=== PATIENT | male | born 1980 | race Two or more races ===

== ENCOUNTER 2025-10-06 14:32 | Emergency (ER) | payer BC, SELFPAY ==
[2025-10-06 14:39] VITALS: BP 143/101; PULSE 86; RESP 18; TEMP 36.8; O2SAT 99; BMI 28.8
--- NOTE | 2025-10-06 15:07 | ED_ITS ---
Discharge Plan Disposition Patient Disposition: Home, Self-Care Prescriptions Prescriptions: New metronidazole 500 mg tablet 500 mg PO BID 7 Days Qty: 14 0RF sulfamethoxazole-trimethoprim [Bactrim DS] 800-160 mg tablet 1 tab PO BID 7 Days Qty: 14 0RF No Action tizanidine 4 mg tablet 4 mg PO HS PRN (Reason: muscle spasticity) Qty: 14 0RF diclofenac potassium 50 mg tablet 50 mg PO TID PRN (Reason: pain) Qty: 30 0RF Referrals Follow up/Referrals: Provider,MD Rachel [Primary Care Provider, Medical] - See instructions Harshal Monique MD [Staff Physician, General Surgery] - See instructions Activity Restrictions/Add. Instructions Additional Instructions/Restrictions: Given the fact that you have had recurrence infected pilonidal cyst I recommend that you follow-up with Dr. Taylor our general surgeon to be evaluated for possible sinus surgery to eliminate the future possibility of recurrence. Take your antibiotics to completion. Floss the surgical lube as we discussed you may cut this out if you are not having any bleeding or purulent drainage which should be 24 to 48 hours. Clinical Impressions Clinical Impression: Infected pilonidal cyst Instructions Patient Instructions: DI for Skin Abscess Print Language Print Language: Syrian Discharge ED Provider: Juan Antonio Fallon General Adult HPI General Chief complaint: Skin/Abscess/Foreign Body Stated complaint: cyst on buttocks Time Seen by Provider: 10/06/25 14:42 Mode of Arrival: Ambulatory Source of Information: Patient Description of Symptoms (Recalled from ER Triage Doc. by RN): Patient reports worsening cyst on his buttocks. History of Present Illness HPI narrative: 44-year-old gentleman who presents today with what he believes is a recurrent infected pilonidal cyst he had incision and drainage 4 years ago never had any type of surgical follow-up but has not had any recurrence. Has severe pain and pressure in the superior aspect of his buttock. Related Data Previous Rx's ?Medication ?Instructions ?Recorded diclofenac potassium 50 mg tablet 50 mg PO TID PRN jorge n #30 tabs 10/27/24 tizanidine 4 mg tablet 4 mg PO HS PRN muscle [facility] 10/27/24 #14 tabs metronidazole 500 mg tablet 500 mg PO BID 7 days #14 t abs 10/06/25 sulfamethoxazole 800 1 tab PO BID 7 days #14 tabs 10/06/25 mg-trimethoprim 160 mg tablet (Bactrim DS) Allergies Allergy/AdvReac Type Severity Reaction Status Date / Time Penicillins Allergy Mild Verified 10/27/24 11:50 [facility] Disclaimer: The information contained in this section may have been updated after the patient was seen, as this information can be updated by other users. Social History (Updated 11/03/24 @ 11:01 by KARLIE Robins) Smoking Status: Never smoker alcohol intake: never current occupational status: employed Travel in the last 8 weeks?: Inside the [place] Have you lived/traveled outside [place] in past 30 days?: No Contact w/someone who lives/traveled outside [place] past 30 days?: No Exposure to someone with infectious disease in past 14 days?: No Do you have a fever (greater than 100.4 F or 38 C)?: No Have you tested positive for COVID-19?: No Exposed to someone with COVID-19 in past 14 days?: No Do you have a sore throat?: No Do you have a cough?: No Do you have any weakness?: No Do you have any diarrhea?: No Are you experiencing any unusual bleeding?: No Do you have any muscle aches/pain?: No Do you have any abdominal pain?: No Are you experiencing loss of taste or smell?: No Other Medical History Have you received the Pneumonia Vaccine: No ROS Obtained: Yes All systems reviewed & no additional complaints except as documented Physical Exam General General appearance: alert and in no apparent distress Respiratory Respiratory exam: Present normal lung sounds bilaterally Cardiovascular Cardiovascular exam: Present regular rate and normal rhythm Back Exam Back 1 view image: 2 1. Large erythematous and fluctuant abnormality of the superior aspect the patient's buttock consistent with a infected pilonidal cyst Neurological Exam Neurological exam: Present alert and oriented X3 Medical Decision Making Medical Records Screening: Per USPSTF and CDC recommendations, given the prevalence of disease in our region, it is our hospital?s policy to screen for HIV and viral Hepatitis for all patients aged 18 and over and those with ongoing risk factors. Dao Inquiry Pt receiving controlled substance: No Vital Signs: 10/06/25 14:39 Temperature 98.2 F Temperature Source Oral Pulse Rate [Radial] 86 Respiratory Rate 18 Blood Pressure [Right Arm] 143/101 H Blood Pressure Mean [Right Arm] 115 Blood Pressure Source [Right Arm] Automatic Cuff Blood Pressure Position [Right Arm] Sitting 02 Sat by Pulse Oximetry 99 Oxygen Delivery Method Room Air Orders (Tests/Meds): ORDERS Category Date Time Status POCUS Point of Care (ER Only) Stat Exams 10/06/25 14:40 Ordered HIV Combo Stat Lab 10/06/25 14:46 Ordered Hepatitis C Ab Qual. W/ RFX Stat Lab 10/06/25 14:46 Ordered Medical Decision Narrative: Patient with above history and physical bedside ultrasound confirmed a large localized fluid collection incision and drainage was performed which yielded a very large amount of purulent debris patient had significant improvement with pressure and pain given the fact that there is possible concern for MRSA Bactrim and Flagyl have been prescribed for the patient. A vessel loop was placed to prevent recurrence and the patient's been advised to floss this and to remove it once he no longer has any purulent or bloody discharge and to follow-up with surgery for possibility of having his cystic tracts removed. Procedures Abscess I/D Site: other (Pilonidal) Local Anesthetic: lidocaine 1% and with epi Amount of anesthesia used (mL): 10 Technique: incised with #11 blade Amount of fluid expressed (mL): 10 Irrigation: No Packing used?: plain (Vessel loop) Miscellaneous Procedure Procedure Performed: Limited soft tissue ultrasound Indication: Abscess Identified structures: Location: Superior aspect of the buttock Findings: Large dense fluid collection that is localized consistent with infected pilonidal cyst and abscess Impression: As above Images were to permanent archive The study was technically adequate Soft Tissue CPT Codes: CPT Neck: 27166-99 CPT Upper extremity: 93447-77 CPT Axilla: 71001-79 CPT Chest wall: 77669-45 CPT Breast: 85664-63-GQ/LT (complete), 11739-49-TZ/LT (limited), CPT Upper Back: 84355-57 CPT Lower Back: 60741-37 CPT Abdominal Wall: 76815-97 CPT Pelvic Wall: 89091-96 CPT Lower Extremity: 65019-66 CPT Other Soft Tissue: 88405-82 This study was performed by me, and I personally interpreted all images/videos. Based on my clinical judgement, these images were added and did not necessitate further imaging. Critical Care Critical Care Time Critical Care Time: No
[2025-10-06 15:12] VITALS: BP 143/101; PULSE 86; RESP 18; TEMP 36.8; O2SAT 99
== END 2025-10-06 15:14 | disposition home or self-care (01) ==
PROVIDERS: Emergency Provider Student in an Organized Health Care Education/Training Program
DX: L05.01 Pilonidal cyst with abscess (principal); Z88.0 Allergy status to penicillin
CPT/HCPCS: 10080; 99284; J2004